=== PATIENT | female | born 1985 | race Caucasian/White ===

== ENCOUNTER 2023-10-14 02:16 | Emergency (ER) | payer BC ==
--- OUTSIDE RECORDS SUMMARY | 2023-10-14 02:22 | XMS REPORT | Continuity of Care Document ---
:1985 Author Organization [facility] t Address [address] [place] [address] [place] [id number] Care Team Providers Name Role Phone PCP, PATIENT DOES NOT HAVE A Primary Care Physician Unavaila ble BERTHA HERNÁNDEZ Attending Clinician Unavailable Leo Obrien ENP Attending Clinician Bertha Hernández DO Attending Clinician HUMANGERALD Attending Clinician Unavailable Human Gerald FAITH Attending Clinician Doctor Unassigned, Delight Attending Clinician Unavailable KHOI BOCANEGRA Attending Clinician Unavailable NIKHIL FINN Attending Clinician Unavailable Only, Pcp [address] Test Attending Clinician Unavailable Malorie Russ MD Attending Clinician MALORIE RUSS Attending Clinician Unavailable Marija Fischer RN Attending Clinician Unavailable Jax Leon RN Attending Clinician Unavailable Lavon Pearce RN Attending Clinician Unavailable Only, Gal Adult Uc Test Attending Clinician Unavailable Unknown, Attending Attending Clinician Unavailable UNKNOWN, ATTENDING Attending Clinician Unavailable Kayleen Edmondson RN Attending Clinician Unavailable Nurse, Gal Adult Urgent Attending Clinician Unavailable NIKHIL YANEZ Attending Clinician Unavailable MD NIKHIL YANEZ Attending Clinician Unavailable Yasmine Sanon MD Attending Clinician PEAKAPRYL, DONOVAN Attending Clinician Unavailable YASMINE SANON Attending Clinician Unavailable Pauline RN, Glendy Machado Attending Clinician Unavailable Only, Clc Bls Test Attending Clinician Unavailable HAYDEN WOLF Attending Clinician Unavailable LE, BERTHA Admitting Clinician Unavailable Le DO, Bertha Admitting Clinician NIKHIL YANEZ Admitting Clinician Unavailable MD NIKHIL YANEZ Admitting Clinician Unavailable Payers Payer Name Policy Type Policy Number Effective Date Expiration Date S ource BCBS FED SELECT [id number] 2013 00:00:00 Problems Condition Condition Condition Status Onset Resolution Last Treating Co mments Source Name Details Category Date Date Treatment Clinician Date Cholecysti Cholecysti Disease Active U nivers tis tis 8-23 ity of 00:00: [place] 00 [facility] Branch Enlarged Enlarged Disease Active 2019-11 Metho di tonsils tonsils 2-15 st and and 00:00: Hospita adenoids adenoids 00 l Snoring Snoring Disease Active 2019-11 Methodi 2[facility] 00:00: Hospita 00 l Scoliosis Scoliosis Disease Active 2019-0 Met hodi 6-15 st 00:00: Hospita 00 l BMI BMI Disease Active 2019-0 Methodi 28.0-28.9, 28.0-28.9, 6-15 st adult adult 00:00: Hospita 00 l Family Family Disease Active 2019-0 Methodi history of history of 5-26 st scoliosis scoliosis 00:00: Hosp sophia 00 l Multiple Multiple Disease Active Overview: Un sav[place] marker marker 03-15 Formattin ity of screen screen 00:00: g of this [place] positive positive 00 note Medica l for Down for Down might be Bran ch syndrome syndrome different from the original. Formattin g of this note might be different from the original. 03/15/2018 : Referral to genetics ordered History of History of Disease Active Overview : Univers gestationa gestationa 02-21 Formattin ity of l diabetes l diabetes 00:00: g of this [place] 00 note Medical might be Branch different from the original. Formattin g of this note might be different from the original. Early GTT at 18w3/30/2 018: Glucomete r prescribe d per patient request Disease Active Overview: Univers in in 01-21 Formattin ity of multigravi multigravi 00:00: g of this [place] da da 00 note Medical might be Branch different from the original. Formattin g of this note might be different from the original. Estimated Date of Delivery: 09/12/18 by 10w c/w 13w ultrasoun [id number] Patient's LMP from OB Dating Form was 12/14/[address] Lama at for any admission /delivery [X]OB panel 01/21/2018: H/H 11.9/35.2 , PLT 256, A+/-, RPR NR, HBsAg NR, Rubella Immune, HIV NR, GCC Negative, Urine Culture No Growth[-] Flu vaccine 01/21/2018: Declined[ X]OB education visit 02/18/2018 []FTS 03/08/2018 NT 1.4 mm[]MSAFP []Anatomy U/S []1hr gtt and H/H at 26-28wks []DTAP vaccine, RPR, HIV at 32wks []Consent []Breastf eeding[]G BS at 36wks Maternal Maternal Disease Active 2016-11 Overview: Un [place] care due care due 12-11 Formattin ity of to low to low 00:00: g of this [place] transverse transverse 00 note Me dical uterine uterine might be Branch scar from scar from different previous previous from the original. delivery delivery Formattin g of this note might be different from the original. Letter dated 07/12/[address] Yaima Parham MD stating that C/S performed on 05/13/2014 and 05/29/2016 were both LUTCS. 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 Formattin g of this note might be different from the original. 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 ICD10 Diagnosis Term Nutrition Services Assistant Utility Allergic Allergic Disease Active Unive rs rhinitis rhinitis 4-20 ity of due to due to 00:00: [place] other other 00 Medical allergen allergen Branch Allergies, Adverse Reactions, Alerts Allergy Allergy Status Severity Reaction(s) Onset Inactive Treating Comm ents Source Name Type Date Date Clinician ADHESIVE Drug Active Rash 2021-11 Univers Class 2-13 ity of 00:00: [place] 00 [facility] Branch Adhesive Drug Active Rash 2021-11 Univers Allergy 2-13 ity of 00:00: [place] 00 [facility] Branch ADHESIVE DRUG Active Other-Cmnt Univ ers TAPE-ROHIT 1-20 ity of ICONES 00:00: [place] 00 [facility] Branch Adhesive Propensi Active Other - See Blisteri n Univers Tape-Rohit ty to comments 1-20 g with ity of icones adverse 00:00: steri [place] reaction 00 strips Medical s Branch Adhesive Propensi Active Other (See Blisterin Methodi Tape-Rohit ty to Comments) 1-[address] icones adverse 00:00: steri Hospita reaction 00 strips l s to drug NO KNOWN Drug Active Univers ALLERGIE Class ity of S [facility] Family History Family Member Diagnosis Comments Start Date Stop Date Source Natural mother Anxiety disorder [facility] Natural mother Dementia [facility] Natural mother Depression [facility] Natural mother ADD / ADHD [facility] Paternal grandmother Alzheimer's Met [facility] Cousin Scoliosis [facility] Natural father Cancer [facility] Maternal grandfather Prostate cancer [facility] Maternal grandmother Dementia [facility] Maternal grandmother Scoliosis [facility] Social History Social Habit Start Date Stop Date Quantity Comments Source Exposure to Not sure University of SARS-CoV-2 (event) [facility] Gender identity Universit y of [facility] Sexual orientation [facility] Alcohol intake 2020-12-24 2020-12-24 Current drinker [facility] dist 00:00:00 00:00:00 of alcohol Hospital (finding) History of Social 2020-12-24 2020-12-[address] function 00:00:00 00:00:00 Hospital Alcohol Comment 2020-04-16 2020-04-16 weekends Bahai 00:00:00 00:00:00 [facility] Tobacco use and 2012-12-01 2012-12-01 Smokeless Universit y of exposure 00:00:00 00:00:00 tobacco non-user [facility] Sex Assigned At [birth year] Bahai 00:00:00 00:00:00 [facility] Smoking Status Start Date Stop Date Source Never smoked tobacco [facility] Medications Ordered Filled Start Stop Current Ordering Indication Dosage Frequency Signature Comments Components Source Medication Medication Date Date Medication? Clinician (SIG) Name Name KCL 2022- No 20meq 20 mEq, Univers (KLOR-CON 07-15 Oral, ity of M20) tablet 00:15: 01:37 [place] 1 [place] mEq 00 :00 dose, On Medical Wed Branch 07/14/23 at 1915, VEGA iopamidol 2022- No [id number] 100mL 100 mL, Univers (ISOVUE 07-14 Intravenou ity o f 370-500 mL) 23:30: 23:30 s, ONCE, 1 [place] injection 00 :00 dose, On Medica l 100 mL Wed Branch 07/14/23 at 1830, Routine ketorolac 2022- No 15mg 15 mg, Unive rs (TORADOL) 07-14 Slow IV ity of injection 22:15: 21:29 Push, [place] 15 mg 00 :00 ONCE, 1 Medical dose, On Branch [facility] 07/14/23 at 1715, VEGA NaCl 0.9% 2022- No 1000mL at 999 Uni vers (NS) bolus 07-14 mL/hr, ity of infusion 22:00: 01:00 1,000 mL, Elijah as 1,000 mL 00 :00 IV Medical Infusion, Branch ONCE, 1 dose, On Wed07/14/23 at 1700, VEGA ondansetron 0 2022- No 4mg 4 mg, Slow Univers (ZOFRAN 07-14 IV Push, ity of (PF)) 22:00: 21:29 ONCE, 1 [place] injection 4 00 :00 dose, On Medi syed mg Wed Branch 07/14/23 at 1700, VEGA amoxicillin 2022-0 202- No [id number] 1{tbl} Take 1 Univers -clavulanat 07-14 tablet by it y of e 875-125 00:00: 04:59 mouth [place] mg per 00 :00 every 12 Medical tablet (twelve) Branch hours for 10 days. Yes Take by Method i no122/iron/ 2-[address] folic acid 11:05: Hospita ( 18 l MULTI ORAL) Lactobacill Yes Take [facility] acidophilus 11:05: Hospit a (PROBIOTIC 18 l ORAL) cholecalcif Yes Take by Met bernarda patt, 2-[address] vitamin D3, 11:05: Hospit a (VITAMIN D3 18 l ORAL) ascorbic Yes Take by Method i acid 2-[address] (VITAMIN C 11:05: Hospita ORAL) 18 l MAGNESIUM Yes Take by Metho di ORAL 2-[address] 11:05: Hospita 18 l PNV 2020-0 Yes [facility] mouth. ity of ous 18:01: [place] fumarate-FA 42 Medical () Branch 28 mg iron- 800 mcg Tab PNV 2020-0 Yes Take [facility] 6-04 mouth. ity of ous 18:01: [place] fumarate-FA 42 Medical () Branch 28 mg iron- 800 mcg Tab PNV 2020-0 Yes Take [facility] 6-04 mouth. ity of ous 18:01: [place] fumarate-FA 42 Medical () Branch 28 mg iron- 800 mcg Tab PNV 2020-0 Yes Take [facility] 6-04 mouth. ity of ous 18:01: [place] fumarate-FA 42 Medical () Branch 28 mg iron- 800 mcg Tab PNV 2020-0 Yes Take [facility] 6-04 mouth. ity of ous 18:01: [place] fumarate-FA 42 Medical () Branch 28 mg iron- 800 mcg Tab PNV 2020-0 Yes Take [facility] 6-04 mouth. ity of ous 18:01: [place] fumarate-FA 42 Medical () Branch 28 mg iron- 800 mcg Tab PNV 2020-0 Yes Take [facility] 6-04 mouth. ity of ous 18:01: [place] fumarate-FA 42 Medical () Branch 28 mg iron- 800 mcg Tab PNV 2020-0 Yes Take by [facility] cmb#95-ferr 6-04 mouth. ity of ous 18:01: [place] fumarate-FA 42 Medical () Branch 28 mg iron- 800 mcg Tab PNV 2020-0 Yes Take [facility] 6-04 mouth. ity of ous 18:01: [place] fumarate-FA 42 Medical () Branch 28 mg iron- 800 mcg Tab PNV 2020-0 Yes Take [facility] 6-04 mouth. ity of ous 18:01: [place] fumarate-FA 42 Medical () Branch 28 mg iron- 800 mcg Tab PNV 2020-0 Yes Take [facility] 6-04 mouth. ity of ous 18:01: [place] fumarate-FA 42 Medical () Branch 28 mg iron- 800 mcg Tab PNV 2020-0 Yes Take [facility] 6-04 mouth. ity of ous 18:01: [place] fumarate-FA 42 Medical () Branch 28 mg iron- 800 mcg Tab PNV 2020-0 Yes Take [facility] 6-04 mouth. ity of ous 18:01: [place] fumarate-FA 42 Medical () Branch 28 mg iron- 800 mcg Tab PNV 2020-0 Yes Take [facility] 6-04 mouth. ity of ous 18:01: [place] fumarate-FA 42 Medical () Branch 28 mg iron- 800 mcg Tab PNV 2020-0 Yes Take [facility] 6-04 mouth. ity of ous 18:01: [place] fumarate-FA 42 Medical () Branch 28 mg iron- 800 mcg Tab PNV 2020-0 Yes Take by Univers cmb#95-ferr 6-04 mouth. ity of ous 18:01: [place] fumarate-FA 42 Medical () Branch 28 mg iron- 800 mcg Tab PNV 2020-0 Yes Take by [facility] cmb#95-ferr 6-04 mouth. ity of ous 18:01: [place] fumarate-FA 42 Medical () Branch 28 mg iron- 800 mcg Tab PNV 2020-0 Yes Take by [facility] cmb#95-ferr 6-04 mouth. ity of ous 18:01: [place] fumarate-FA 42 Medical () Branch 28 mg iron- 800 mcg Tab PNV 2020-0 Yes Take by [facility] cmb#95-ferr 6-04 mouth. ity of ous 18:01: [place] fumarate-FA 42 Medical () Branch 28 mg iron- 800 mcg Tab PNV 2020-0 Yes Take by [facility] cmb#95-ferr 6-04 mouth. ity of ous 18:01: [place] fumarate-FA 42 Medical () Branch 28 mg iron- 800 mcg Tab PNV 2020-0 Yes Take by [facility] cmb#95-ferr 6-04 mouth. ity of ous 18:01: [place] fumarate-FA 42 Medical () Branch 28 mg iron- 800 mcg Tab PNV 2020-0 Yes Take by [facility] cmb#95-ferr 6-04 mouth. ity of ous 13:01: [place] fumarate-FA 42 Medical () Branch 28 mg iron- 800 mcg Tab PNV 2020-0 Yes Take by [facility] cmb#95-ferr 6-04 mouth. ity of ous 13:01: [place] fumarate-FA 42 Medical () Branch 28 mg iron- 800 mcg Tab PNV 2020-0 Yes Take by [facility] cmb#95-ferr 6-04 mouth. ity of ous 13:01: [place] fumarate-FA 42 Medical () Branch 28 mg iron- 800 mcg Tab PNV 2020-0 Yes Take by [facility] cmb#95-ferr 6-04 mouth. ity of ous 13:01: [place] fumarate-FA 42 Medical () Branch 28 mg iron- 800 mcg Tab PNV 2020-0 Yes Take by [facility] cmb#95-ferr 6-04 mouth. ity of ous 13:01: [place] fumarate-FA 42 Medical () Branch 28 mg iron- 800 mcg Tab PNV 2020-0 Yes Take [facility] 6-04 mouth. ity of ous 13:01: [place] fumarate-FA 42 Medical () Branch 28 mg iron- 800 mcg Tab PNV 2017- Yes Take [facility] 1-14 mouth. ity of ous 05:08: [place] fumarate-FA 00 Medical () Branch 28 mg iron- 800 mcg Tab PNV 2017 Yes Take [facility] 1-14 mouth. ity of ous 05:08: [place] fumarate-FA 00 Medical () Branch 28 mg iron- 800 mcg Tab Immunizations Ordered Filled Date Status Comments Source Immunization Name Immunization Name SARS-COV-2 COVID-19 2021-04-09 Completed Unive rsity of PFIZER VACCINE 00:00:00 [facility] SARS-COV-2 COVID-19 2021-04-09 Completed Unive rsity of PFIZER VACCINE 00:00:00 [facility] SARS-COV-2 COVID-19 2021-04-09 Completed Unive rsity of PFIZER VACCINE 00:00:00 [facility] SARS-COV-2 COVID-19 2021-04-09 Completed Unive rsity of PFIZER VACCINE 00:00:00 [facility] Pfizer COVID-19 Pfizer COVID-19 2021-04-09 Completed Vaccine Vaccine 00:00:00 SARS-COV-2 COVID-19 2021-03-19 Completed Unive rsity of PFIZER VACCINE 00:00:00 [facility] SARS-COV-2 COVID-19 2021-03-19 Completed Unive rsity of PFIZER VACCINE 00:00:00 [facility] SARS-COV-2 COVID-19 2021-03-19 Completed Unive rsity of PFIZER VACCINE 00:00:00 [facility] SARS-COV-2 COVID-19 2021-03-19 Completed Unive rsity of PFIZER VACCINE 00:00:00 [facility] Pfizer COVID-19 Pfizer COVID-19 2021-03-19 Completed Vaccine Vaccine 00:00:00 Allergen Extract 2012-04-11 Completed Universi ty of vial b 00:00:00 [facility] Allergen Extract 2012-04-11 Completed Universi ty of vial b 00:00:00 [place] [facility] Allergen Extract 2012-04-11 Completed Universi ty of vial b 00:00:00 [place] [facility] Allergen Extract 2012-04-11 Completed Universi ty of vial b 00:00:00 [place] [facility] Allergen Extract 2012-04-11 Completed Universi ty of vial b 00:00:00 [place] [facility] Allergen Extract 2012-04-06 Completed Universi ty of vial b 00:00:00 [place] [facility] Allergen Extract 2012-04-06 Completed Universi ty of vial b 00:00:00 [place] [facility] Allergen Extract 2012-04-06 Completed Universi ty of vial b 00:00:00 [place] [facility] Allergen Extract 2012-04-06 Completed Universi ty of vial b 00:00:00 [place] [facility] Allergen Extract 2012-04-06 Completed Universi ty of vial b 00:00:00 [place] [facility] allergen extract 2012-03-28 Completed Universi ty of vial a 00:00:00 [place] [facility] Allergen Extract 2012-03-28 Completed Universi ty of vial b 00:00:00 [place] [facility] allergen extract 2012-03-28 Completed Universi ty of vial a 00:00:00 [place] [facility] Allergen Extract 2012-03-28 Completed Universi ty of vial b 00:00:00 [place] [facility] allergen extract 2012-03-28 Completed Universi ty of vial a 00:00:00 [place] [facility] Allergen Extract 2012-03-28 Completed Universi ty of vial b 00:00:00 [place] [facility] allergen extract 2012-03-28 Completed Universi ty of vial a 00:00:00 [place] [facility] Allergen Extract 2012-03-28 Completed Universi ty of vial b 00:00:00 [place] [facility] allergen extract 2012-03-28 Completed Universi ty of vial a 00:00:00 [place] [facility] Allergen Extract 2012-03-28 Completed Universi ty of vial b 00:00:00 [place] [facility] allergen extract 2012-03-23 Completed Universi ty of vial a 00:00:00 [place] [facility] Allergen Extract 2012-03-23 Completed Universi ty of vial b 00:00:00 [place] [facility] allergen extract 2012-03-23 Completed Universi ty of vial a 00:00:00 [place] [facility] Allergen Extract 2012-03-23 Completed Universi ty of vial b 00:00:00 [place] [facility] allergen extract 2012-03-23 Completed Universi ty of vial a 00:00:00 [place] [facility] Allergen Extract 2012-03-23 Completed Universi ty of vial b 00:00:00 [place] [facility] allergen extract 2012-03-23 Completed Universi ty of vial a 00:00:00 [place] [facility] Allergen Extract 2012-03-23 Completed Universi ty of vial b 00:00:00 [place] [facility] allergen extract 2012-03-23 Completed Universi ty of vial a 00:00:00 [place] [facility] Allergen Extract 2012-03-23 Completed Universi ty of vial b 00:00:00 [place] [facility] Allergen Extract 2012-03-21 Completed Universi ty of vial b 00:00:00 [place] [facility] Allergen Extract 2012-03-21 Completed Universi ty of vial b 00:00:00 [place] [facility] Allergen Extract 2012-03-21 Completed Universi ty of vial b 00:00:00 [place] [facility] Allergen Extract 2012-03-21 Completed Universi ty of vial b 00:00:00 [place] [facility] Allergen Extract 2012-03-21 Completed Universi ty of vial b 00:00:00 [place] [facility] allergen extract 2012-03-18 Completed Universi ty of vial a 00:00:00 [place] [facility] Allergen Extract 2012-03-18 Completed Universi ty of vial b 00:00:00 [place] [facility] allergen extract 2012-03-18 Completed Universi ty of vial a 00:00:00 [place] [facility] Allergen Extract 2012-03-18 Completed Universi ty of vial b 00:00:00 [place] [facility] allergen extract 2012-03-18 Completed Universi ty of vial a 00:00:00 [place] [facility] Allergen Extract 2012-03-18 Completed Universi ty of vial b 00:00:00 [place] [facility] allergen extract 2012-03-18 Completed Universi ty of vial a 00:00:00 [place] [facility] Allergen Extract 2012-03-18 Completed Universi ty of vial b 00:00:00 [place] [facility] allergen extract 2012-03-18 Completed Universi ty of vial a 00:00:00 [place] [facility] Allergen Extract 2012-03-18 Completed Universi ty of vial b 00:00:00 [place] [facility] allergen extract 2012-02-12 Completed Universi ty of vial a 00:00:00 [place] [facility] Allergen Extract 2012-02-12 Completed Universi ty of vial b 00:00:00 [place] [facility] allergen extract 2012-02-12 Completed Universi ty of vial a 00:00:00 [place] [facility] Allergen Extract 2012-02-12 Completed Universi ty of vial b 00:00:00 [place] [facility] allergen extract 2012-02-12 Completed Universi ty of vial a 00:00:00 [place] [facility] Allergen Extract 2012-02-12 Completed Universi ty of vial b 00:00:00 [place] [facility] allergen extract 2012-02-12 Completed Universi ty of vial a 00:00:00 [place] [facility] Allergen Extract 2012-02-12 Completed Universi ty of vial b 00:00:00 [place] [facility] allergen extract 2012-02-12 Completed Universi ty of vial a 00:00:00 [place] [facility] Allergen Extract 2012-02-12 Completed Universi ty of vial b 00:00:00 [place] [facility] allergen extract 2011-12-29 Completed Universi ty of vial a 00:00:00 [place] [facility] Allergen Extract 2011-12-29 Completed Universi ty of vial b 00:00:00 [place] [facility] allergen extract 2011-12-29 Completed Universi ty of vial a 00:00:00 [place] [facility] Allergen Extract 2011-12-29 Completed Universi ty of vial b 00:00:00 [place] [facility] allergen extract 2011-12-29 Completed Universi ty of vial a 00:00:00 [place] [facility] Allergen Extract 2011-12-29 Completed Universi ty of vial b 00:00:00 [place] [facility] allergen extract 2011-12-29 Completed Universi ty of vial a 00:00:00 [place] [facility] Allergen Extract 2011-12-29 Completed Universi ty of vial b 00:00:00 [place] [facility] allergen extract 2011-12-29 Completed Universi ty of vial a 00:00:00 [place] [facility] Allergen Extract 2011-12-29 Completed Universi ty of vial b 00:00:00 [place] [facility] allergen extract 2011-12-16 Completed Universi ty of vial a 00:00:00 [place] [facility] Allergen Extract 2011-12-16 Completed Universi ty of vial b 00:00:00 [place] [facility] allergen extract 2011-12-16 Completed Universi ty of vial a 00:00:00 [place] [facility] Allergen Extract 2011-12-16 Completed Universi ty of vial b 00:00:00 [place] [facility] allergen extract 2011-12-16 Completed Universi ty of vial a 00:00:00 [place] [facility] Allergen Extract 2011-12-16 Completed Universi ty of vial b 00:00:00 [place] [facility] allergen extract 2011-12-16 Completed Universi ty of vial a 00:00:00 [place] [facility] Allergen Extract 2011-12-16 Completed Universi ty of vial b 00:00:00 [place] [facility] allergen extract 2011-12-16 Completed Universi ty of vial a 00:00:00 [place] [facility] Allergen Extract 2011-12-16 Completed Universi ty of vial b 00:00:00 [place] [facility] allergen extract 2011-11-30 Completed Universi ty of vial a 00:00:00 [place] [facility] Allergen Extract 2011-11-30 Completed Universi ty of vial b 00:00:00 [place] [facility] allergen extract 2011-11-30 Completed Universi ty of vial a 00:00:00 [place] [facility] Allergen Extract 2011-11-30 Completed Universi ty of vial b 00:00:00 [place] [facility] allergen extract 2011-11-30 Completed Universi ty of vial a 00:00:00 [place] [facility] Allergen Extract 2011-11-30 Completed Universi ty of vial b 00:00:00 [place] [facility] allergen extract 2011-11-30 Completed Universi ty of vial a 00:00:00 [place] [facility] Allergen Extract 2011-11-30 Completed Universi ty of vial b 00:00:00 [place] [facility] allergen extract 2011-11-30 Completed Universi ty of vial a 00:00:00 [place] [facility] Allergen Extract 2011-11-30 Completed Universi ty of vial b 00:00:00 [place] [facility] allergen extract 2011-11-27 Completed Universi ty of vial a 00:00:00 [place] [facility] Allergen Extract 2011-11-27 Completed Universi ty of vial b 00:00:00 [place] [facility] allergen extract 2011-11-27 Completed Universi ty of vial a 00:00:00 [place] [facility] Allergen Extract 2011-11-27 [facility] allergen extract 2011-11-27 Completed [facility]00 [facility] Allergen Extract 2011-11-27 Completed [facility]00 [facility] allergen extract 2011-11-27 Completed [facility]00 [facility] Allergen Extract 2011-11-27 Completed [facility]00 [facility] allergen extract 2011-11-27 Completed [facility]00 [facility] Allergen Extract 2011-11-27 Completed [facility]00 [facility] allergen extract 2011-11-13 Completed [facility]00 [facility] Allergen Extract 2011-11-13 Completed [facility]00 [facility] allergen extract 2011-11-13 Completed [facility]00 [facility] Allergen Extract 2011-11-13 Completed [facility]00 [facility] allergen extract 2011-11-13 Completed [facility]00 [facility] Allergen Extract 2011-11-13 Completed [facility]00 [facility] allergen extract 2011-11-13 Completed [facility] 00:[facility]00 [facility] Allergen Extract 2011-11-13 Completed [facility]00 [facility] allergen extract 2011-11-13 Completed [facility] 00:[facility]00 [facility] Allergen Extract 2011-11-13 Completed [facility]00 [facility] allergen extract 2011-11-06 Completed [facility]00 [facility] Allergen Extract 2011-11-06 Completed [facility]00 [facility] allergen extract 2011-11-06 Completed [facility]00 [facility] Allergen Extract 2011-11-06 Completed [facility]00 [facility] allergen extract 2011-11-06 Completed [facility]00 [facility] Allergen Extract 2011-11-06 Completed [facility]00 [facility] allergen extract 2011-11-06 Completed [facility]00 [facility] Allergen Extract 2011-11-06 Completed [facility]00 [facility] allergen extract 2011-11-06 Completed [facility]00 [facility] Allergen Extract 2011-11-06 Completed [facility]00 [facility] allergen extract 2011-10-30 Completed [facility]00 [facility] Allergen Extract 2011-10-30 Completed [facility]00 [facility] allergen extract 2011-10-30 Completed [facility] 00:[facility]00 [facility] Allergen Extract 2011-10-30 Completed [facility]00 [facility] allergen extract 2011-10-30 Completed [facility] 00:00:00 [facility] Allergen Extract 2011-10-30 Completed [facility]:00[facility]00 [facility] allergen extract 2011-10-30 Completed [facility]00 [facility] Allergen Extract 2011-10-30 Completed [facility]00 [facility] allergen extract 2011-10-30 Completed [facility] 00:00[facility]00 [facility] Allergen Extract 2011-10-30 Completed [facility]00 [facility] allergen extract 2011-10-21 Completed [facility] 00:[facility]00 [facility] Allergen Extract 2011-10-21 Completed [facility]00 [facility] allergen extract 2011-10-21 Completed [facility] 00:[facility]00 [facility] Allergen Extract 2011-10-21 Completed [facility]00 [facility] allergen extract 2011-10-21 Completed [facility] 00:[facility]:00 [facility] Allergen Extract 2011-10-21 Completed [facility]00 [facility] allergen extract 2011-10-21 Completed [facility] 00:00:00 [facility] Allergen Extract 2011-10-21 Completed [facility] 00:[facility]00 [facility] allergen extract 2011-10-21 Completed [facility] 00:00:00 [facility] Allergen Extract 2011-10-21 Completed [facility]00 [facility] allergen extract 2011-10-19 Completed [facility] 00:[facility]00 [facility] Allergen Extract 2011-10-19 Completed [facility]00 [facility] allergen extract 2011-10-19 Completed [facility] 00:00[facility]00 [facility] Allergen Extract 2011-10-19 Completed [facility]00 [facility] allergen extract 2011-10-19 Completed [facility] 00:[facility]:00 [facility] Allergen Extract 2011-10-19 Completed [facility]00 [facility] allergen extract 2011-10-19 Completed [facility] 00:00:00 [facility] Allergen Extract 2011-10-19 Completed [facility]00 [facility] allergen extract 2011-10-19 Completed [facility] 00:00:00 [facility] Allergen Extract 2011-10-19 Completed [facility] 00:[facility]:00 [facility] allergen extract 2011-10-05 Completed [facility] 00:00:00 [facility] Allergen Extract 2011-10-05 Completed [facility] 00:[facility]:00 [facility] allergen extract 2011-10-05 Completed [facility] 00:00:00 [facility] Allergen Extract 2011-10-05 Completed [facility] 00:00:00 [facility] allergen extract 2011-10-05 Completed [facility] 00:00:00 [facility] Allergen Extract 2011-10-05 Completed [facility] 00:[facility]:00 [facility] allergen extract 2011-10-05 Completed [facility] 00:00:00 [facility] Allergen Extract 2011-10-05 Completed [facility] 00:[facility]00 [facility] allergen extract 2011-10-05 Completed [facility] 00:00:00 [facility] Allergen Extract 2011-10-05 Completed [facility] 00:[facility]00 [facility] allergen extract 2011-09-21 Completed [facility] 00:00[facility]00 [facility] Allergen Extract 2011-09-21 Completed [facility]00 [facility] allergen extract 2011-09-21 Completed [facility] 00:00:00 [facility] Allergen Extract 2011-09-21 Completed [facility]00 [facility] allergen extract 2011-09-21 Completed [facility] 00:00:00 [facility] Allergen Extract 2011-09-21 Completed [facility]00 [facility] allergen extract 2011-09-21 Completed [facility] 00:00:00 [facility] Allergen Extract 2011-09-21 Completed [facility]00 [facility] allergen extract 2011-09-21 Completed [facility] 00:00:00 [facility] Allergen Extract 2011-09-21 Completed [facility]00 [facility] allergen extract 2011-09-16 Completed [facility] 00:00:00 [facility] Allergen Extract 2011-09-16 Completed [facility]00 [facility] allergen extract 2011-09-16 Completed [facility] 00:00:00 [facility] Allergen Extract 2011-09-16 Completed [facility] 00:[facility]:00 [facility] allergen extract 2011-09-16 Completed [facility] 00:00:00 [facility] Allergen Extract 2011-09-16 Completed [facility]00 [facility] allergen extract 2011-09-16 Completed [facility] 00:00:00 [facility] Allergen Extract 2011-09-16 Completed [facility] 00:[facility]00 [facility] allergen extract 2011-09-16 Completed [facility] 00:00:00 [facility] Allergen Extract 2011-09-16 Completed [facility]00 [facility] allergen extract 2011-08-26 Completed [facility] 00:00:00 [facility] Allergen Extract 2011-08-26 Completed [facility]00 [facility] allergen extract 2011-08-26 Completed [facility] 00:00:00 [facility] Allergen Extract 2011-08-26 Completed [facility] 00:[facility]:00 [facility] allergen extract 2011-08-26 Completed [facility] 00:[facility]:00 [facility] Allergen Extract 2011-08-26 Completed [facility]00 [facility] allergen extract 2011-08-26 Completed [facility] 00:00:00 [facility] Allergen Extract 2011-08-26 Completed [facility] 00:[facility]00 [facility] allergen extract 2011-08-26 Completed [facility] 00:00:00 [facility] Allergen Extract 2011-08-26 Completed [facility]00 [facility] allergen extract 2011-08-24 Completed [facility] 00:00:00 [facility] Allergen Extract 2011-08-24 Completed [facility]00 [facility] allergen extract 2011-08-24 Completed [facility] 00:00:00 [facility] Allergen Extract 2011-08-24 Completed [facility] 00:[facility]:00 [facility] allergen extract 2011-08-24 Completed [facility] 00:[facility]:00 [facility] Allergen Extract 2011-08-24 Completed [facility] 00:[facility]00 [facility] allergen extract 2011-08-24 Completed [facility] 00:00:00 [facility] Allergen Extract 2011-08-24 Completed [facility]00 [facility] allergen extract 2011-08-24 Completed [facility] 00:00:00 [facility] Allergen Extract 2011-08-24 Completed [facility] 00:[facility]00 [facility] allergen extract 2011-08-19 Completed [facility] 00:00:00 [facility] Allergen Extract 2011-08-19 Completed [facility] 00:[facility]00 [facility] allergen extract 2011-08-19 Completed [facility] 00:00:00 [facility] Allergen Extract 2011-08-19 Completed [facility] 00:[facility]00 [facility] allergen extract 2011-08-19 Completed [facility] 00:00:00 [facility] Allergen Extract 2011-08-19 Completed [facility]00 [facility] allergen extract 2011-08-19 Completed [facility] 00:00:00 [facility] Allergen Extract 2011-08-19 Completed [facility] 00:[facility]:00 [facility] allergen extract 2011-08-19 Completed [facility] 00:00:00 [facility] Allergen Extract 2011-08-19 Completed [facility] 00:[facility]:00 [facility] Allergen Extract 2011-08-17 Completed [facility] 00:[facility]:00 [facility] allergen extract 2011-08-17 Completed [facility] 00:00:00 [facility] Allergen Extract 2011-08-17 Completed [facility] 00:[facility]:00 [facility] allergen extract 2011-08-17 Completed [facility] 00:00:00 [facility] Allergen Extract 2011-08-17 Completed [facility] 00:[facility]:00 [facility] allergen extract 2011-08-17 Completed [facility] 00:00:00 [facility] Allergen Extract 2011-08-17 Completed [facility]:00 [facility] allergen extract 2011-08-17 Completed [facility] 00:00:00 [facility] Allergen Extract 2011-08-17 Completed [facility]00 [facility] allergen extract 2011-08-17 Completed [facility] 00:00:00 [facility] allergen extract 2011-08-10 Completed [facility] 00:00:00 [facility] Allergen Extract 2011-08-10 Completed [facility] 00:[facility]:00 [facility] allergen extract 2011-08-10 Completed [facility] 00:00:00 [facility] Allergen Extract 2011-08-10 Completed [facility] 00:00:00 [facility] allergen extract 2011-08-10 Completed [facility] 00:00:00 [facility] Allergen Extract 2011-08-10 Completed [facility] 00:00:00 [facility] allergen extract 2011-08-10 Completed [facility] 00:00:00 [facility] Allergen Extract 2011-08-10 Completed [facility] 00:00:00 [facility] allergen extract 2011-08-10 Completed [facility] 00:00:00 [facility] Allergen Extract 2011-08-10 Completed [facility] 00:00:00 [facility] allergen extract 2011-08-05 Completed [facility] 00:00:00 [facility] Allergen Extract 2011-08-05 Completed [facility] 00:[facility]:00 [facility] allergen extract 2011-08-05 Completed [facility] 00:00:00 [facility] Allergen Extract 2011-08-05 Completed [facility] 00:[facility]:00 [facility] allergen extract 2011-08-05 Completed [facility] 00:00:00 [facility] Allergen Extract 2011-08-05 Completed [facility] 00:00:00 [facility] allergen extract 2011-08-05 Completed [facility] 00:00:00 [facility] Allergen Extract 2011-08-05 Completed [facility] 00:00:00 [facility] allergen extract 2011-08-05 Completed [facility] 00:00:00 [facility] Allergen Extract 2011-08-05 Completed [facility] 00:00:00 [facility] allergen extract 2011-08-03 Completed [facility] 00:00:00 [facility] Allergen Extract 2011-08-03 Completed [facility] 00:00:00 [facility] allergen extract 2011-08-03 Completed [facility] 00:00:00 [facility] Allergen Extract 2011-08-03 Completed [facility] 00:00:00 [facility] allergen extract 2011-08-03 Completed [facility] 00:00:00 [facility] Allergen Extract 2011-08-03 Completed [facility] 00:00:00 [facility] allergen extract 2011-08-03 Completed [facility] 00:00:00 [facility] Allergen Extract 2011-08-03 Completed [facility] 00:00:00 [facility] allergen extract 2011-08-03 Completed [facility] 00:00:00 [facility] Allergen Extract 2011-08-03 Completed [facility]:00:00 [facility] allergen extract 2011-07-29 Completed [facility] 00:00:00 [facility] Allergen Extract 2011-07-29 Completed [facility]:00:00 [facility] allergen extract 2011-07-29 Completed [facility] 00:00:00 [facility] Allergen Extract 2011-07-29 Completed [facility] 00:00:00 [facility] allergen extract 2011-07-29 Completed [facility] 00:00:00 [facility] Allergen Extract 2011-07-29 Completed [facility] 00:00:00 [facility] allergen extract 2011-07-29 Completed [facility] 00:00:00 [facility] Allergen Extract 2011-07-29 Completed [facility] 00:00:00 [facility] allergen extract 2011-07-29 Completed [facility] 00:00:00 [facility] Allergen Extract 2011-07-29 Completed [facility]:00:00 [facility] allergen extract 2011-07-10 Completed [facility] 00:00:00 [facility] Allergen Extract 2011-07-10 Completed [facility] 00:00:00 [facility] allergen extract 2011-07-10 Completed [facility] 00:00:00 [facility] Allergen Extract 2011-07-10 Completed [facility] 00:00:00 [facility] allergen extract 2011-07-10 Completed [facility] 00:00:00 [facility] Allergen Extract 2011-07-10 Completed [facility] 00:00:00 [facility] allergen extract 2011-07-10 Completed [facility] 00:00:00 [facility] Allergen Extract 2011-07-10 Completed [facility] 00:00:00 [facility] allergen extract 2011-07-10 Completed [facility] 00:00:00 [facility] Allergen Extract 2011-07-10 Completed [facility] 00:00:00 [facility] allergen extract 2011-07-07 Completed [facility] 00:00:00 [facility] Allergen Extract 2011-07-07 Completed [facility] 00:00:00 [facility] allergen extract 2011-07-07 Completed [facility] 00:00:00 [facility] Allergen Extract 2011-07-07 Completed [facility] 00:00:00 [facility] allergen extract 2011-07-07 Completed [facility] 00:00:00 [facility] Allergen Extract 2011-07-07 Completed [facility] 00:00:00 [facility] allergen extract 2011-07-07 Completed [facility] 00:00:00 [facility] Allergen Extract 2011-07-07 Completed [facility] 00:00:00 [facility] allergen extract 2011-07-07 Completed [facility] 00:00:00 [facility] Allergen Extract 2011-07-07 Completed [facility]:00:00 [facility] allergen extract 2011-06-24 Completed [facility] 00:00:00 [facility] Allergen Extract 2011-06-24 Completed [facility]:00 [facility] allergen extract 2011-06-24 Completed [facility] 00:00:00 [facility] Allergen Extract 2011-06-24 Completed [facility]:00:00 [facility] allergen extract 2011-06-24 Completed [facility] 00:00:00 [facility] Allergen Extract 2011-06-24 Completed [facility]:00:00 [facility] allergen extract 2011-06-24 Completed [facility] 00:00:00 [facility] Allergen Extract 2011-06-24 Completed [facility]:00:00 [facility] allergen extract 2011-06-24 Completed [facility] 00:00:00 [facility] Allergen Extract 2011-06-24 Completed [facility]:00 [facility] allergen extract 2011-06-22 Completed [facility] 00:00:00 [facility] Allergen Extract 2011-06-22 Completed [facility]:00 [facility] allergen extract 2011-06-22 Completed [facility] 00:00:00 [facility] Allergen Extract 2011-06-22 Completed [facility]:00:00 [facility] allergen extract 2011-06-22 Completed [facility] 00:00:00 [facility] Allergen Extract 2011-06-22 Completed [facility] 00:00:00 [facility] allergen extract 2011-06-22 Completed [facility] 00:00:00 [facility] Allergen Extract 2011-06-22 Completed [facility]:00:00 [facility] allergen extract 2011-06-22 Completed [facility] 00:00:00 [facility] Allergen Extract 2011-06-22 Completed [facility]:00:00 [facility] allergen extract 2011-06-10 Completed [facility] 00:00:00 [facility] Allergen Extract 2011-06-10 Completed [facility]:00:00 [facility] allergen extract 2011-06-10 Completed [facility] 00:00:00 [facility] Allergen Extract 2011-06-10 Completed [facility]:00:00 [facility] allergen extract 2011-06-10 Completed [facility] 00:00:00 [facility] Allergen Extract 2011-06-10 Completed [facility]:00:00 [facility] allergen extract 2011-06-10 Completed [facility] 00:00:00 [facility] Allergen Extract 2011-06-10 Completed [facility] 00:00:00 [facility] allergen extract 2011-06-10 Completed [facility] 00:00:00 [facility] Allergen Extract 2011-06-10 Completed [facility]:00:00 [facility] allergen extract 2011-06-08 Completed [facility] 00:00:00 [facility] Allergen Extract 2011-06-08 Completed [facility]:00:00 [facility] allergen extract 2011-06-08 Completed [facility] 00:00:00 [facility] Allergen Extract 2011-06-08 Completed [facility]:00:00 [facility] allergen extract 2011-06-08 Completed [facility] 00:00:00 [facility] Allergen Extract 2011-06-08 Completed [facility]:00 [facility] allergen extract 2011-06-08 Completed [facility] 00:00:00 [facility] Allergen Extract 2011-06-08 Completed [facility]:00 [facility] allergen extract 2011-06-08 Completed [facility] 00:00:00 [facility] Allergen Extract 2011-06-08 Completed [facility]:00 [facility] allergen extract 2011-06-05 Completed [facility] 00:00:00 [facility] Allergen Extract 2011-06-05 Completed [facility]:00 [facility] allergen extract 2011-06-05 Completed [facility] 00:00:00 [facility] Allergen Extract 2011-06-05 Completed [facility]:00:00 [facility] allergen extract 2011-06-05 Completed [facility] 00:00:00 [facility] Allergen Extract 2011-06-05 Completed [facility]:00:00 [facility] allergen extract 2011-06-05 Completed [facility] 00:00:00 [facility] Allergen Extract 2011-06-05 Completed [facility]:00:00 [facility] allergen extract 2011-06-05 Completed [facility] 00:00:00 [facility] Allergen Extract 2011-06-05 Completed [facility]:00 [facility] allergen extract 2011-05-20 Completed [facility] 00:00:00 [facility] Allergen Extract 2011-05-20 Completed [facility]:00 [facility] allergen extract 2011-05-20 Completed [facility] 00:00:00 [facility] Allergen Extract 2011-05-20 Completed [facility]:00 [facility] allergen extract 2011-05-20 Completed [facility] 00:00:00 [facility] Allergen Extract 2011-05-20 Completed [facility]:00:00 [facility] allergen extract 2011-05-20 Completed [facility] 00:00:00 [facility] Allergen Extract 2011-05-20 Completed [facility]:00:00 [facility] allergen extract 2011-05-20 Completed [facility] 00:00:00 [facility] Allergen Extract 2011-05-20 Completed [facility]:00 [facility] allergen extract 2011-05-18 Completed [facility] 00:00:00 [facility] Allergen Extract 2011-05-18 Completed [facility]:00 [facility] allergen extract 2011-05-18 Completed [facility] 00:00:00 [facility] Allergen Extract 2011-05-18 Completed [facility]:00:00 [facility] allergen extract 2011-05-18 Completed [facility] 00:00:00 [facility] Allergen Extract 2011-05-18 Completed [facility] 00:00:00 [facility] allergen extract 2011-05-18 Completed [facility] 00:00:00 [facility] Allergen Extract 2011-05-18 Completed [facility] 00:00:00 [facility] allergen extract 2011-05-18 Completed [facility] 00:00:00 [facility] Allergen Extract 2011-05-18 Completed [facility] 00:00:00 [facility] allergen extract 2011-05-06 Completed [facility] 00:00:00 [facility] Allergen Extract 2011-05-06 Completed [facility] 00:00:00 [facility] allergen extract 2011-05-06 Completed [facility] 00:00:00 [facility] Allergen Extract 2011-05-06 Completed [facility] 00:00:00 [facility] allergen extract 2011-05-06 Completed [facility] 00:00:00 [facility] Allergen Extract 2011-05-06 Completed [facility]:00:00 [facility] allergen extract 2011-05-06 Completed [facility] 00:00:00 [facility] Allergen Extract 2011-05-06 Completed [facility]00 [facility] allergen extract 2011-05-06 Completed [facility] 00:[facility]:00 [facility] Allergen Extract 2011-05-06 Completed [facility] [facility] allergen extract 2011-05-01 Completed [facility] vial a 00:00:00 [facility] Allergen Extract 2011-05-01 Completed [facility] b 00:00:00 [facility] allergen extract 2011-05-01 Completed [facility] vial a 00:00:00 [facility] Allergen Extract 2011-05-01 Completed [facility] ty [facility] vial b 00:00:00 [facility] allergen extract 2011-05-01 Completed [facility]i ty of vial a 00:00:00 [facility] Allergen Extract 2011-05-01 Completed [facility]i ty of vial b 00:00:00 [facility] allergen extract 2011-05-01 Completed [facility]i ty [facility] vial a 00:00:00 [facility] Allergen Extract 2011-05-01 Completed [facility]i ty of vial b 00:00:00 [facility] allergen extract 2011-05-01 Completed Universi ty of vial a 00:00:00 [facility] Allergen Extract 2011-05-01 Completed [facility]i ty of vial b 00:00:00 [facility] allergen extract 2011-04-28 Completed Universi ty of vial a 00:00:00 [facility] Allergen Extract 2011-04-28 Completed Universi ty of vial b 00:00:00 [facility] allergen extract 2011-04-28 Completed [facility]i ty of vial a 00:00:00 [facility] Allergen Extract 2011-04-28 Completed [facility]i ty [facility] vial b 00:00:00 [facility] allergen extract 2011-04-28 Completed [facility]i ty of vial a 00:00:00 [facility] Allergen Extract 2011-04-28 Completed [facility]i ty of vial b 00:00:00 [facility] allergen extract 2011-04-28 Completed [facility]i ty [facility] vial a 00:00:00 [facility] Allergen Extract 2011-04-28 Completed [facility]i ty of vial b 00:00:00 [facility] allergen extract 2011-04-28 Completed [facility]i ty of vial a 00:00:00 [facility] Allergen Extract 2011-04-28 Completed [facility]i ty of vial b 00:00:00 [facility] allergen extract 2011-04-22 Completed [facility]i ty [facility] vial a 00:00:00 [facility] Allergen Extract 2011-04-22 Completed [facility]i ty [facility] vial b 00:00:00 [facility] allergen extract 2011-04-22 Completed [facility]i ty [facility] vial a 00:00:00 [facility] Allergen Extract 2011-04-22 Completed [facility]i ty [facility] vial b 00:00:00 [facility] allergen extract 2011-04-22 Completed [facility]i ty [facility] vial a 00:00:00 [facility] Allergen Extract 2011-04-22 Completed [facility]i ty of vial b 00:00:00 [facility] allergen extract 2011-04-22 Completed [facility]i ty [facility] vial a 00:00:00 [facility] Allergen Extract 2011-04-22 Completed [facility] vial b 00:00:00 [facility] allergen extract 2011-04-22 Completed [facility] ty [facility] vial a 00:00:00 [facility] Allergen Extract 2011-04-22 Completed [facility]i ty [facility] vial b 00:00:00 [facility] allergen extract 2011-04-13 Completed [facility] vial a 00:00:00 [facility] Allergen Extract 2011-04-13 Completed [facility]i [facility] vial b 00:00:00 [facility] allergen extract 2011-04-13 Completed [facility]i ty of vial a 00:00:00 [facility] Allergen Extract 2011-04-13 Completed [facility]i ty of vial b 00:00:00 [facility] allergen extract 2011-04-13 Completed [facility] vial a 00:00:00 [facility] Allergen Extract 2011-04-13 Completed [facility]i ty of vial b 00:00:00 [facility] allergen extract 2011-04-13 Completed [facility]i ty of vial a 00:00:00 [facility] Allergen Extract 2011-04-13 Completed [facility] ty [facility] vial b 00:00:00 [facility] allergen extract 2011-04-13 Completed [facility]i ty of vial a 00:00:00 [facility] Allergen Extract 2011-04-13 Completed [facility]i ty [facility] vial b 00:00:00 [facility] allergen extract 2011-04-06 Completed [facility] ty [facility] vial a 00:00:00 [facility] Allergen Extract 2011-04-06 Completed [facility] ty [facility] vial b 00:00:00 [facility] allergen extract 2011-04-06 Completed [facility] ty of vial a 00:00:00 [facility] Allergen Extract 2011-04-06 Completed [facility] vial b 00:00:00 [facility] allergen extract 2011-04-06 Completed [facility] vial a 00:00:00 [facility] Allergen Extract 2011-04-06 Completed [facility]i ty of vial b 00:00:00 [facility] allergen extract 2011-04-06 Completed [facility]i ty of vial a 00:00:00 [facility] Allergen Extract 2011-04-06 Completed [facility] ty [facility] vial b 00:00:00 [facility] allergen extract 2011-04-06 Completed [facility] ty [facility] vial a 00:00:00 [facility] Allergen Extract 2011-04-06 Completed [facility]i ty [facility] vial b 00:00:00 [facility] PFIZER COVID-19 Unknown Completed [facility] PFIZER COVID-19 Unknown Completed [facility] Vital Signs Vital Name Observation Time Observation Value Comments Source Systolic blood 2023-07-15 01:30:00 135 mm[Hg] Univer sity of pressure [facility] Diastolic blood 2023-07-15 01:30:00 87 mm[Hg] Unive rsity of pressure [facility] Heart rate 2023-07-15 01:30:00 88 /min Universi ty of [facility] Respiratory rate 2023-07-15 01:30:00 18 /min Univ ersity of [facility] Oxygen saturation in 2023-07-15 01:30:00 100 /min University of Arterial blood by [facility] Pulse oximetry Branch Body temperature 2023-07-14 21:05:00 36.61 Angelina [facility] Body height 2023-07-14 21:05:00 172.7 cm [facility] Body weight 2023-07-14 21:05:00 83.915 kg [facility] BMI 2023-07-14 21:05:00 28.13 kg/m2 [facility] Systolic blood 2023-05-31 13:14:00 110 mm[Hg] Univer sity of pressure [facility] Diastolic blood 2023-05-31 13:14:00 68 mm[Hg] Unive rsity of pressure [facility] Heart rate 2023-05-31 13:14:00 84 /min [facility] Body temperature 2023-05-31 13:14:00 36.28 Angelina [facility] Respiratory rate 2023-05-31 13:14:00 18 /min [facility] Body height 2023-05-31 13:14:00 172.7 cm [facility] Body weight 2023-05-31 13:14:00 83.507 kg [facility] BMI 2023-05-31 13:14:00 27.99 kg/m2 [facility] Oxygen saturation in 2023-05-31 13:14:00 98 /min University of Arterial blood by [facility] Pulse oximetry Branch Systolic blood 2020-04-25 18:00:00 133 mm[Hg] Univer sity of pressure [facility] Diastolic blood 2020-04-25 18:00:00 81 mm[Hg] Unive rsity of pressure [facility] Heart rate 2020-04-25 18:00:00 72 /min [facility] Respiratory rate 2020-04-25 18:00:00 18 /min [facility] Body height 2020-04-25 18:00:00 172.7 cm [facility] Body weight 2020-04-25 18:00:00 81.012 kg [facility] BMI 2020-04-25 18:00:00 27.16 kg/m2 [facility] Oxygen saturation in 2020-04-25 18:00:00 99 /min University of Arterial blood by [facility] Pulse oximetry Branch Systolic blood 2020-04-25 18:00:00 133 mm[Hg] Univer sity of pressure [facility] Diastolic blood 2020-04-25 18:00:00 81 mm[Hg] Unive rsity of pressure [facility] Heart rate 2020-04-25 18:00:00 72 /min [facility] Respiratory rate 2020-04-25 18:00:00 18 /min Univ ersity of [facility] Body height 2020-04-25 18:00:00 172.7 cm [facility] Body weight 2020-04-25 18:00:00 81.012 kg [facility] BMI 2020-04-25 18:00:00 27.16 kg/m2 [facility] Oxygen saturation in 2020-04-25 18:00:00 99 /min [facility] Arterial blood by [facility] Pulse oximetry [place] Procedures Procedure Date / Time Performing Clinician Source Performed CT ABDOMEN PELVIS W 2023-07-14 22:35:00 Micah Leo [facility] CONTRAST [facility] LIPASE 2023-07-14 21:55:00 Micah [facility] COMP. METABOLIC PANEL 2023-07-14 21:55:00 Leo Obrien [facility] ([id number]) [facility] POCT TEST 2023-07-14 21:35:00 Micah Leo [facility] CBC WITH DIFF 2023-07-14 21:20:00 Obrien, [facility] CONSENT/REFUSAL FOR 2023-07-14 21:04:23 Doctor Unassigned, No Un [facility] DIAGNOSIS AND TREATMENT Name Medical [place] POCT MOLECULAR FLU 2023-05-31 13:26:00 Gerald Genao [facility] POCT MOLECULAR STREP 2023-05-31 13:23:[address] [facility] AUTHORIZATION FOR 2023-05-31 05:01:00 Doctor Unassigned, No [facility]I Name Medical Branch REFERRAL- 2023-01-21 06:01:00 Doctor Unassigned, No [facility] REQUEST/RESPONSE Name [facility] ASSIGNMENT OF BENEFITS 2021-07-21 21:03:51 Doctor Unassigned, No [facility] Name [facility] Branch CONSENT/REFUSAL FOR 2020-04-25 17:50:57 [facility] Name [facility] Plan of Care Planned Activity Planned Date Details Comments Source Future Scheduled 2023-09-24 Hepatitis C [facility] Test 18:39:38 screening (procedure) [code = 522388801] Future Scheduled 2023-09-24 Screening for [facility] Test 18:39:38 malignant neoplasm of cervix (procedure) [code = 926420227] Future Scheduled 2023-09-24 COVID-19 VACCINE (3 [facility] Test 18:39:38 - season) [code = COVID-19 VACCINE (3 - season)] Future Scheduled 2023-09-24 [facility]ENZA [facility]ACCINE [facility] Test 18:39:38 (#1) [code = INFLUENZA VACCINE (#1)] Encounters Start End Encounter Admission Attending Care Care Encounter Source Date/Time Date/Time Type Type Clinicians Facility Department ID 2023-07-14 2023-07-14 Emergency X BERTHA HERNÁNDEZ [facility] KALINA [id number] Univers [facility]:06[facility] 2023-07-14 Emergency ObrienMay jacomeo [facility] 1.2.840. 114 [id number] Univers 16:06:00 21:08:00 Bertha Hernández HEALTH 350.1.13.10 i ty of CLEAR 4.2.7.2.686 [facility] [id number] [address] ([facility]) 2023-05-31 2023-05-31 Outpatient R HUMAN, [facility] [id number] Univers 08:00:00 08:41:26 GERALD lew [facility] 2023-05-31 2023-05-31 Office Human, [facility] 1.2.840.114 [id number] Univers 08:00:00 08:41:26 Visit Gerald REYNOLDSHERIBERTO 350.1.13.10 [place].2.[place] [facility] [phone] [facility] dical AND ADULT 314 Branch [facility] 2023-05-31 2023-05-31 Orders Doctor URIAH 1.2.840.114 [id number] Univers 00:00:00 00:00:00 Only Unassigned, RONNIE 350.1.13.10 [facility]y [facility] 4.2.7.2.686 Elijah as [phone] [address] 2023-02-22 2023-02-22 Outpatient R SAHRA [facility] [id number] Univers 10:30:00 10:30:00 KHOI lew [facility] 2023-01-21 2023-01-21 Orders Doctor URIAH 1.2.840.114 [id number] Univers 00:00:00 00:00:00 Only Unassigned, RONNIE 350.1.13.10 ity of [place] [facility] 4.2.7.2.686 Elijah as [phone] [address] 2022-11-30 2022-11-30 Lab 1.2.840.1 [id number] Methodi 12:45:00 12:50:[address] 3.430.2.7 Hospit a .3.513713 l .8 2022-11-30 2022-11-30 Outpatient [facility] [id number] [place] 00:00:00 00:00:00 851 Method i 2022-09-28 2022-09-28 Outpatient [facility] [id number] [place] 00:00:00 00:00:00 NIKHIL 432 Method i 2021-12-18 2021-12-18 Laboratory Only, Pcp [address] Test [facility] 1.2.840.114 [id number] Univers 13:15:00 13:30:00 Only Malorie Russ PRIMARY 350.1.13.10 [place] C[place].2.[place] [id number] Ct dical 042 Branch 2021-12-18 2021-12-18 Outpatient R CINDY [facility] [id number] Univers 13:15:00 13:15:00 MALORIE vipin [facility] 2021-08-01 2021-08-01 Laboratory Only, Pcp [address] Test [facility] 1.2.840.114 [id number] Univers 08:40:38 08:55:38 Only Malorie Russ H PRIMARY 350.1.13.10 it[place].2.[place] [id number] Ct dical [address] [place] [address] 2021-08-01 2021-08-01 Outpatient R CINDY [facility] [id number] Univers 08:45:00 08:45:00 MALORIE sandovalmillie [facility] 2021-08-01 2021-08-01 Letter URIAH Fischer 1.2.840.114 [id number] Univers 00:00:00 00:00:00 (Out) Marija TRUJILLO 350.1.13.10 it y of HOSPITAL 4.2.7.2.686 Elijah as [phone] [address] 2021-08-01 2021-08-01 Nurse URIAH Leon 1.2.430.915 [id number] Univers 00:00:00 00:00:00 Triage Jax RONNIE 350.1.13.10 it y of HOSPITAL 4.2.7.2.686 [place] as [phone] [address] 2021-07-22 2021-07-22 URIAH Cyr 1.2.840.114 [id number] Univers 00:00:00 00:00:00 (Out) Aneatrice RONNIE 350.1.13.10 ity of HOSPITAL 4.2.7.2.686 [place] as [phone] [address] 2021-07-22 2021-07-22 URIAH Cyr 1.2.840.114 [id number] Univers 00:00:00 00:00:00 (Out) Aneatrice RONNIE 350.1.13.10 ity of HOSPITAL 4.2.7.2.686 [place] as [id number] [address] 2021-07-21 2021-07-21 Laboratory Only, Gal Adult Uc Test [facility] 1.2.840.114 [id number] Univers 16:03:47 16:18:47 Only Unknown, [place] 350.1.13.10 ity of [place].2.686 [place] [id number] [facility] [address] [place] 2021-07-21 2021-07-21 Laboratory Only, Gal Adult Uc Test [facility] 1.2.840.114 [id number] Univers 16:03:47 16:18:47 Only Unknown, [place] 350.1.13.10 ity of Pediatric [place]2.7.2.686 [place] [phone] [facility] [address] [place] 2021-07-21 2021-07-21 Outpatient R UNKNOWN, [facility] [id number] Univers 16:00:00 16:00:00 ATTENDING ity [facility] 2021-07-21 2021-07-21 Orders Doctor KRUSE 1Pasha2.840.114 [id number] Univers 00:00:00 00:00:00 Only Unassigned, RONNIE 350.1.13.10 [facility] 4.2.7.2.686 Elijah as [phone] [facility] 00[address] [place] 2021-07-21 2021-07-21 Orders Doctor KRUSE 1.2.840.114 [id number] Univers 00:00:00 00:00:00 Only Unassigned, RONNIE 350.1.13.10 [facility] 4.2.7.2.686 Elijah as [phone] [facility] 009 [place] 2021-07-07 2021-07-07 Telephone URIAH Edmondson2.464.345 [id number] Univers 00:00:00 00:00:00 Kayleen BLAIRY 350.1.13.10 i ty of HOSPITAL 4.2.7.2.686 [place] [phone] [facility] 019 Branch 2021-07-06 2021-07-06 Outpatient R UNKNOWN, [facility] [id number] Univers 14:30:00 14:30:00 ATTENDING ity [facility] 2021-07-06 2021-07-06 Laboratory Nurse, Gal Adult Urgent [facility] 1.2.840.114 [id number] Univers 11:44:53 11:59:53 Only Unknown, [place] 350.1.13.10 ity of Pediatric [place].2.7.2.686 [place] [phone] [place] [address] Branch 2021-04-09 2021-04-09 Outpatient GCCOVIDV GCCOVIDV [id number] GCCOVID 00:00:00 00:00:00 V 2021-04-09 2021-04-09 Outpatient [facility] [id number] [place] 00:00:00 00:00:00 529 Method i 2021-03-19 2021-03-19 Outpatient GCCOVIDV GCCOVIDV [id number] GCCOVID 00:00:00 00:00:00 V 2021-03-19 2021-03-19 Outpatient [facility] [id number] [place] 00:00:00 00:00:00 553 Method i 2020-12-24 2020-12-24 [facility] [id number] [place] 00:00:00 00:00:00 NIKHIL 394 Method i 2020-12-18 2020-12-18 Outpatient YANEZ, [facility] 021 [id number] [place] 00:00:00 00:00:00 NIKHIL 385 Method i 2020-12-13 2020-12-13 Outpatient YANEZ, [facility] [id number] [place] 00:00:00 00:00:00 NIKHIL 915 Method i 2020-11-05 2020-11-05 [facility] [id number] [place] 00:00:00 00:00:00 NIKHIL 081 Method i 2020-10-15 2020-10-15 Outpatient [facility] [id number] [place] 00:00:00 00:00:00 197 Method i 2020-08-02 2020-08-02 Telephone SAMI Sanon 1.2.840.114 [id number] [facility] 00:00:00 00:00:00 [facility] 350.1.13.10 it y of Clear 4.2.7.2.686 Zamzam maldonado [place] [phone] [place] 776539 Branch Office Building 2020-07-22 2020-07-22 Outpatient PEAKES, [facility] [id number] [place] 00:00:00 00:00:00 DONOVAN 088 Method i 2020-06-25 2020-06-25 Outpatient R TALITA [facility] [id number] Univers 14:30:00 14:30:00 RAFIC ity of [facility] 2020-06-25 2020-06-25 Telephone Glendy Carpenter 1.2.840.114 [id number] 00:00:00 00:00:00 RONNIE 350.1.13.10 [facility] 4.2.7.2.686 [id number] 019 2020-06-25 2020-06-25 Telephone Glendy Carpenter 1.2.840.114 [id number] [facility] 00:00:00 00:00:00 RONNIE 350.1.13.10 it y of HOSPITAL 4.2.7.2.686 Elijah as [phone] [address] 2020-06-24 2020-06-24 Laboratory Only, Clc [facility] 1.2.840.114 [id number] 09:35:04 09:50:04 Only Bls Test Health 350.1.13.10 [place] 4.2.7.2.686 [place] [phone] [place] [address] Office Building 2020-06-24 2020-06-24 Laboratory Only, Clc Bls Test [facility] 1.2. 840.114 [id number] Univers 09:35:04 09:50:04 Only Talita [facility] 350.1.13.10 [place] [phone] [address] Office Building 2020-06-24 2020-06-24 Outpatient R [facility] [id number] [facility] 09:30:00 09:30:00 ity [facility] 2020-05-16 2020-05-16 Outpatient LUCIANO, [facility] [id number] [place] 00:00:00 00:00:[address] 2020-05-16 2020-05-16 Outpatient LUCIANO, [facility] [id number] [place] 00:00:00 00:00:00 HAYDEN 734 Method i 2020-05-06 2020-05-06 Outpatient LUCIANO, [facility] [id number] [place] 00:00:00 00:00:[address]AYDEN [address] 2020-04-25 2020-04-25 Office [facility] 1.2.348.779 [id number] 12:52:08 22:25:33 Visit [facility] 350.1.13.10 [place] 4.2.7.2.686 [place] [phone] [address] 2020-04-25 2020-04-25 Office [facility] [id number] [id number] [facility] 12:52:08 22:25:33 Visit [facility] 350.1.13.10 it [place] [id number] [address] 2020-04-25 2020-04-25 Outpatient R [facility] [id number] Univers 13:00:00 13:00:00 RAFIC ity of [facility] 2020-04-25 2020-04-25 Orders Doctor URIAH 1.2.840.114 [id number] Univers 00:00:00 00:00:00 Only Unassigned, RONNIE 350.1.13.10 ity of [place] [facility] 4.2.7.2.686 Elijah as [phone] [address] 2020-04-16 2020-04-16 Outpatient LUCIANO, [facility] [id number] [place] 00:00:00 00:00:00 HAYDEN [address] 2020-03-21 2020-03-21 Telephone [facility] 1.2.840.114 [id number] Univers 00:00:00 00:00:00 [facility] 350.1.13.10 it [place] [phone] [address] Office [facility] Results Test Description Test Time Test Comments Results Result Comments Source COMP. METABOLIC PANEL (15773) 2023-07-14 22:21:39 Test Item Value Reference Range Interpretation Comme nts NA (test code = 2909010424) 134 mmol/L 135-145 L K (test code = 8641319810) 3.3 mmol/L 3.5-5.0 L CL (test code = 8330441462) 101 mmol/L 98-108 CO2 TOTAL (test code = 9722805019) 25 mmol/L 23-31 AGAP (test code = 4321375224) 8 2-16 BUN (test code = 6270072877) 14 mg/dL 7-23 GLUCOSE (test code = 3883876895) 102 mg/dL 70-110 CREATININE (test code = 0.58 mg/dL 0.50-1.04 5681563237) TOTAL BILI (test code = 1.2 mg/dL 0.1-1.1 H 5748462854) CALCIUM (test code = 9785849736) 8.9 mg/dL 8.6-10.6 T PROTEIN (test code = 0210107693) 8.2 g/dL 6.3-8.2 ALBUMIN (test code = 6854995223) 4.5 g/dL 3.5-5.0 ALK PHOS (test code = 5430064509) 87 U/L 34-122 ALTv (test code = 1742-6) 82 U/L 5-35 H AST(SGOT) (test code = 1294696020) 136 U/L 13-40 H eGFR (test code = 6468486104) 116.3 mL/min/1.73m2 MECHE (test code = MECHE) Association of Glomerular Filtration Rate (GFR) and Staging of Kidney Disease* + +-------- + ------+| GFR (mL/min/1.73 m2) ?| With Kidney Damage ?| ?Without Kidney Damage+ +-- + +| ?>90 ?| ?Stage one ?| ? Normal ?+ +------- + -------+| ?60-89 ?| ?Stage two ?| ? Decreased GFR ? + +-------- + ------+| ?30-59 ?| ?Stage three ?| ? Stage three ? + +-------- + ------+| ?15-29 ?| ?Stage four ? | ? Stage four ?+ +------- + -------+| ?<15 (or dialysis) ? ?| ?Stage five ? | ? Stage five ?+ +------- + -------+ *Each stage assumes the associated GFR level has been in effect for at least three months. ?Stages 1 to 5, with or without kidney disease, indicate chronic kidney disease. Notes: Determination of stages one and two (with eGFR >59mL/min/1.73 m2) requires estimation of kidney damage for at least three months as defined by structural or functional abnormalities of the kidney, manifested by either:Pathological abnormalities or Markers of kidney damage (including abnormalities in the composition of the blood or urine or abnormalities in imaging tests). Lab Interpretation (test code = Abnormal 16822-1) [facility]21[facility]39 Test Item Value Reference Range Interpretation Comments LIPASE (test code = 3630037297) 97 U/L 0-220 Lab Interpretation (test code = Normal 84477-1) [facility] [id number] 21:35:00 Test Item Value Reference Range Interpretation Comments POCT PREG (test code = 1605) Negative On board controls acceptable with C Yes Line (test code = 3574) POCT PREG LOT # (test code = 3575) [id number] POCT PREG TEST DATE (test 11/24/24 code = 3576) Lab Interpretation (test code = Normal 30050-1) [facility] [id number] 21:33:20 Test Item Value Reference Range Interpretation Comments WBC (test code = 11.51 See_Comment H [Automated 9185-2) message] The sy stem which generated this result transmitted reference range : 4.30 - 11.10 10*3/?L. The reference range was not used to interpret this result as normal/abnormal . RBC (test code = 4.83 See_Comment [Automated 522-8) message] The sy stem which generated this result transmitted reference range : 3.93 - 5.25 10*6/?L. The reference range was not used to interpret this result as normal/abnormal . HGB (test code = 13.4 g/dL 11.6-15.0 718-7) HCT (test code = 39.8 % 35.7-45.2 4544-3) MCV (test code = 82.4 fL 80.6-95.5 787-2) MCH (test code = 27.7 pg 25.9-32.8 785-6) MCHC (test code = 33.7 g/dL 31.6-35.1 786-4) RDW-SD (test code = 41.2 fL 39.0-49.9 56540-3) RDW-CV (test code = 13.9 % 12.0-15.5 788-0) PLT (test code = 247 See_Comment [Automated 777-3) message] The sy stem which generated this result transmitted reference range : 166 - 358 10*3/ ?L. The reference r chano was not used to interpret this result as normal/abnormal . MPV (test code = 10.6 fL 9.5-12.9 06079-9) NRBC/100 WBC (test 0.0 See_Comment [Automat ed code = 2324164189) message] The system which generated this result transmitted reference range : 0.0 - 10.0 /100 WBCs. The refer ence range was not u sed to interpret th is result as normal/abnormal . NRBC x10^3 (test code See_Comment [Auto mated = 7117066816) message] The s ystem which generated this result transmitted reference range : 10*3/?L. The reference range was not used to interpret this result as normal/abnormal . GRAN MAT (NEUT) % 77.9 % (test code = 770-8) IMM GRAN % (test code 0.30 % = 7887404305) LYMPH % (test code = 14.3 % 736-9) MONO % (test code = 6.5 % 5905-5) EOS % (test code = 0.7 % 713-8) BASO % (test code = 0.3 % 706-2) GRAN MAT x10^3(ANC) 8.96 10*3/uL 1.88-7.09 H (test code = 6262121961) IMM GRAN x10^3 (test 0.03 10*3/uL 0.00-0.06 code = 6731453983) LYMPH x10^3 (test code 1.65 10*3/uL 1.32-3.29 = 731-0) MONO x10^3 (test code 0.75 10*3/uL 0.33-0.92 = 742-7) EOS x10^3 (test code = 0.08 10*3/uL 0.03-0.39 711-2) BASO x10^3 (test code 0.04 10*3/uL 0.01-0.07 = 704-7) Lab Interpretation Abnormal (test code = 36390-5) [facility] MOLECULAR [id number] 13:40:13 Test Item Value Reference Range Interpretation Comments POCT Molecular FluA (test code = Negative Negative 79842-4) POCT Molecular FluB (test code = Negative Negative 11985-1) Lab Interpretation (test code = Normal 53255-2) [facility] MOLECULAR [id number] 13:40:13 Test Item Value Reference Range Interpretation Comments POCT Molecular FluA (test code = Negative Negative 45194-7) POCT Molecular FluB (test code = Negative Negative 80191-8) Lab Interpretation (test code = Normal 24754-1) [facility] MOLECULAR [id number] 13:30:50 Test Item Value Reference Range Interpretation Comments POCT Molecular Strep (test code = Negative Negative 66373-8) Lab Interpretation (test code = Normal 57247-0) [facility] MOLECULAR [id number] 13:30:50 Test Item Value Reference Range Interpretation Comments POCT Molecular Strep (test code = Negative Negative 67922-7) Lab Interpretation (test code = Normal 38535-4) [facility] [Presence] in Respiratory specimen by TRAVIS with probe [id number] 14:42:29 Test Item Value Reference Range Interpretation Comments SARS-CoV-2 (COVID-19) RNA Not detected Not-Detected [Presence] in Respiratory specimen by TRAVIS with probe detection (test code = 94456-1) [facility] Notes Date/Time Note Provider Source 2023-07-14 20:59:48 [id number]:59:48Formatting [facility] [place] - [facility] of this note might be different from the original.Social Work Note:07/14/2023 9:00 PMSW attempted SFA. Pt was dc home. JORDYN Bonilla [facility] Department of Care Management ED Slps E: [email or web address]: [email or web address] signed by Angelica Hernandez LBSW at 07/14/2023 9:00 PM [id number] department GmwmKD0273-93-96Q81:00:16[facility] [id number] [id number] ailable for patient [id number] NoteLN[address]TXTX[address] [id number]:00:161.2.840.11 4350.1.72.3.15|1.2.840.117399 .1.13.104.2.7.2.727879_188170 5822 2023-07-14 16:04:25 5799-50-86S83:04:25Formatting Lynn de la torre RN [facility] of this note might be different from the original.C/O epigastric abdominal pain, sudden onset @ noon today, radiating to the Right sided abdomen. Associated nausea,vomiting. Denies diarrhea or fever. [id number] department Triage jogsGM1221-07-50L45:05:23[facility] Triage [id number] [id number] ailable for patient [id number] department [id number] C Flynn RN[address]TX[address] [id number]:05:231.2.840.11 4350.1.72.3.15|1.2.840.335138 .[id number] 6006"
[2023-10-14] MEDS ORDERED: ONDANSETRON 4 MG/2 ML VIAL ONE (02:43)
[2023-10-14] MEDS ORDERED: KETOROLAC 30 MG/ML INJ ONE ×2 (02:43→04:54)
[2023-10-14] MEDS ORDERED: FAMOTIDINE 20 MG/2 ML VIAL IV ONE (02:44)
[2023-10-14] MEDS ORDERED: NA CHLORIDE 0.9% 1,000 ML ONE (02:44)
[2023-10-14 03:18] LABS: Absolute Lymphocytes (CBC) 2.8 K/uL (0.7-4.9); Hematocrit 39.4 % (36.0-45.0); Lymphocytes % 35.4 % (15.3-44.8); MCV 86.2 fL (80-100); MPV 8.5 fL (7.6-11.3); Platelets 250 thou/uL (152-406); RBC Red Blood Cell Count 4.58 M/uL (3.86-4.86)
[2023-10-14 04:12] LABS: Specific Gravity 1.011 (1.005-1.030)
[2023-10-14 04:18] LABS: Bilirubin Total 0.5 mg/dL (0.2-1.0); Protein, Total 8.6 g/dL (6.4-8.2)
[2023-10-14 04:19] LABS: Specific Gravity 1.011 (1.005-1.030); Urine Bacteria <20 /HPF (<20); Urine Bilirubin NEGATIVE (Negative); Urine Blood Negative (Negative); Urine Clarity Extremely Turbid (Clear); Urine Color Colorless (Yellow); Urine Glucose NEGATIVE (Negative); Urine Mucus Slight /HPF (None Seen); Urine Protein NEGATIVE (Negative); Urine RBC <5 /HPF (None Seen); Urine Urobilinogen Normal (Normal)
[2023-10-14 04:20] LABS: Potassium 4.1 mEq/L (3.5-5.1)
[2023-10-14] MEDS ORDERED: DICYCLOMINE HCL 20 MG/2 ML AMP IM ONE (04:55)
[2023-10-14] MEDS ORDERED: IBUPROFEN 400 MG TAB ONE (06:12)
[2023-10-14] MEDS ORDERED: ACETAMINOPHEN 500 MG TAB ONE (06:12)
--- NOTE | 2023-10-14 06:42 | EDPHYS ---
Physician Documentation [facility] Name: Leigh Ann Bain Age: 38 yrs Sex: Female : 1985 Arrival Date: 10/14/2023 Time: 02:16 Bed 7 Private MD: ED Physician Santana Will HPI: 10/14 02:24 This 38 yrs old Female presents to ER via Ambulatory with complaints of Abdominal Pain. kb 02:24 Patient is a 38-year-old female who presents for right upper quadrant pain and nausea kb that started 1 hour prior to arrival. Patient states she had similar episode 3 months ago and was told it was her gallbladder. At that time patient was placed on antibiotics and she has not had any problems until today. Patient has not followed up with GI or surgery.. Historical: - Allergies: 02:27 No Known Allergies; rv - PMHx: 02: cholelithiasis; rv - PSHx: :27 None; rv - Immunization history:: Adult Immunizations up to date. - Social history:: Smoking status: Patient denies any tobacco usage or history of. ROS: 02:23 Constitutional: Negative for fever, chills, and weight loss, kb 02:23 Abdomen/GI: Positive for abdominal pain, nausea, Negative for vomiting, diarrhea, constipation, 02:23 All other systems are negative, Exam: 02:23 Constitutional: This is a well developed, well nourished patient who is awake, alert, kb and in no acute distress. Head/Face: Normocephalic, atraumatic. ENT: Moist Mucous membranes Cardiovascular: Regular rate Respiratory: Respirations even and unlabored. No increased work of breathing. Talking in full sentences Skin: Warm, dry with normal turgor. Normal color. MS/ Extremity: Pulses equal, no cyanosis. Neurovascular intact. Full, normal range of motion. Neuro: Awake and alert, GCS 15, oriented to person, place, time, and situation. Moves all extremities. Normal gait. 02:23 Abdomen/GI: Inspection: abdomen appears normal, Bowel sounds: normal, Palpation: soft, in all quadrants, moderate abdominal tenderness, in the right upper quadrant, Vital Signs: 02:22 BP 152 / 102; Pulse 87; Resp 17; Temp 98.8; Pulse Ox 100% ; rv 03:45 BP 131 / 84; Pulse 76; Resp 1; Pulse Ox 100% ; jj7 04:46 BP 125 / 84; Pulse 83; Resp 19; Pulse Ox 100% ; jj7 05:45 BP 137 / 79; Pulse 75; Resp 16; Pulse Ox 100% ; jj7 06:59 BP 131 / 74; Pulse 73; Resp 15; Pulse Ox 99% ; jj7 MDM: 02:18 Patient medically screened. kb 02:24 Differential diagnosis: cholecystitis, Cholelithiasis, gastritis, gastroesophageal kb reflux disease, non-specific abd pain. Data reviewed: vital signs, nurses notes. 03:54 ED course: US - CLINICAL HISTORY: 38 years Female; ABD PAIN TECHNIQUE: Limited sp4 abdominal ultrasound was performed. COMPARISON: None. FINDINGS: Liver: Heterogeneous echotexture with scattered areas of focal fatty sparing. No focal lesions. Gallbladder: Gallstones present. No p pericholecystic fluid. Gallbladder wall measures 1 mm. Common bile duct: 4 mm. IMPRESSION: Cholelithiasis without sonographic evidence of acute cholecystitis. . 06:33 ED course: CT - abdomen , pelvis COMPARISON: None. FINDINGS: Lower thorax: Lung bases sp4 are clear Abdomen: Stomach:Within normal limits Liver:No focal lesions. Hepatic steatosis. Enlarged. No intrahepatic ductal distention. Gallbladder:Mildly distended. Pancreas:Within normal limits Spleen:Within normal limits Right kidney:No hydronephrosis. 3 mm renal stone. Left kidney:No hydronephrosis. No focal lesion. Adrenal glands:Within normal limits Vascular structures:Atherosclerosis of the abdominal aorta and major branches. Nodes:No lymphadenopathy by size criteria Pelvis: Small bowel:No significant distention. Appendix:Within normal limits Colon:No distention or acute pericolonic edema. Peritoneum: No free air. Trace free fluid in the pelvis. Bones: No acute bone findings. Bladder: Unremarkable. Reproductive organs: No acute findings. IMPRESSION: 1. No acute abdominopelvic findings. 2. Hepatomegaly with hepatic steatosis. 3. Right-sided nephrolithiasis. No hydronephrosis. 4. Trace free fluid in the pelvis, likely physiologic. Electronically signed by: Caridad Amaya MD 10/14/2023 06:03 AM. 10/14 02:22 Order name: CBC with Diff; Complete Time: 03:54 kb 10/14 02:22 Order name: CMP; Complete Time: 04:28 kb 10/14 02:22 Order name: Lipase; Complete Time: 04:28 kb 10/14 02:22 Order name: Test, Urine; Complete Time: 04:28 kb 10/14 02:22 Order name: Urinalysis w/ reflexes; Complete Time: 04:28 kb 10/14 02:22 Order name: US Abdomen Limited kb 10/14 04:37 Order name: CT Abd/Pelvis - IV Contrast Only sp4 10/14 02:22 Order name: IV Saline Lock; Complete Time: 02:48 kb 10/14 02:22 Order name: Labs collected and sent; Complete Time: 02:48 kb Administered Medications: 02:47 Drug: Famotidine IVP 20 mg IVP once; dilute with 10 mL 0.9% NaCl; give over 2 minutes jj7 Route: IVP; Site: right forearm; 03:00 Follow up: Response: No adverse reaction jj7 02:48 Drug: NS 0.9% IV 1000 ml IV at 1 bolus Per protocol; 1000 mL bolus Route: IV; Rate: 1 jj7 bolus; Site: right forearm; 02:48 Drug: TORadol - Ketorolac IVP 15 mg IVP once Route: IVP; Site: right forearm; jj7 03:00 Follow up: Response: Pain is decreased jj7 02:48 Drug: Ondansetron IVP 4 mg IVP once; over 2 minutes Route: IVP; Site: right forearm; jj7 03:00 Follow up: Response: Nausea is decreased jj7 04:51 Drug: Ketorolac IVP 15 mg IVP once Route: IVP; Site: right forearm; jj7 05:15 Follow up: Response: No change in condition jj7 04:52 Drug: Dicyclomine IM 20 mg IM once Route: IM; Site: right gluteus; jj7 05:15 Follow up: Response: No change in condition jj7 06:04 Drug: Ibuprofen PO 800 mg PO once Route: PO; jj7 06:57 Follow up: Response: No adverse reaction jj7 06:04 Drug: Acetaminophen PO 1000 mg PO once Route: PO; jj7 06:57 Follow up: Response: No adverse reaction jj7 Disposition: 03:55 Co-signature as Attending Physician, Santana Will MD I agree with the assessment sp4 and plan of care. I reviewed the patient's care provided by Advanced Practice Provider \T\ agree w/ the diagnosis \T\ care plan. I personally saw the pt \T\ performed a substantive portion of the visit, incldng all aspects of the (History/Exam/Medical Decision Making). Disposition Summary: 10/14/23 06:41 Discharge Ordered Notes: Location: Home sp4 Problem: new sp4 Symptoms: have improved sp4 Condition: Stable sp4 Diagnosis - Other cholelithiasis without obstruction sp4 - biliary colic sp4 Followup: sp4 - With: Private Physician - When: 7 - 10 days - Reason: Recheck today's complaints Discharge Instructions: - Discharge Summary Sheet sp4 - Cholelithiasis sp4 Forms: - Patient Portal Instructions sp4 Prescriptions: - naproxen 500 mg Oral tablet - take 1 tablet ORAL route every 12 hours PRN pain; 30 tablet; Refills: 0, sp4 Product Selection Permitted - dicyclomine 20 mg Oral tablet - take 1 tablet ORAL route every 6 hours PRN abdominal pain; 30 tablet; Refills: sp4 0, Product Selection Permitted - ondansetron 8 mg Oral Tablet,disintegrating - take 1 tablet ORAL route every 6 hours PRN nausea; 30 tablet; Refills: 0, sp4 Product Selection Permitted Signatures: Dispatcher [employer] Lexus Alexander, BUSINESS CONTROL SPECIALIST-C BUSINESS CONTROL SPECIALIST-José Miguel Rojas, RN Solo Oglesby RN RN jj7 Santana Will MD MD sp4
--- NOTE | 2023-10-14 06:42 | ER ---
Nurse's Notes [facility] Name: Leigh Ann Bain Age: 38 yrs Sex: Female : 1985 Arrival Date: 10/14/2023 Time: 02:16 Bed 7 Private MD: Diagnosis: Other cholelithiasis without obstruction;biliary colic Presentation: 10/14 02:22 Chief complaint: Patient states: sudden onset of RUQ pain, diagnosed with gall bladder rv stones 3 months ago. with nausea, wo vomiting. Coronavirus screen: At this time, the client does not indicate any symptoms associated with coronavirus-19. Ebola Screen: No symptoms or risks identified at this time. Initial Sepsis Screen: Does the patient meet any 2 criteria? No. Patient's initial sepsis screen is negative. Does the patient have a suspected source of infection? No. Patient's initial sepsis screen is negative. Risk Assessment: Do you want to hurt yourself or someone else? Patient reports no desire to harm self or others. 02:22 Method Of Arrival: Ambulatory rv 02:30 Acuity: JENNIFER 3 jj7 Triage Assessment: 02:27 General: Appears in no apparent distress. Behavior is calm, cooperative. Pain: rv Complains of pain in abdomen. Neuro: 02:30 Neuro: Level of Consciousness is awake, alert, obeys commands, Oriented to person, rv place, time, situation. Cardiovascular: Capillary refill < 3 seconds Patient's skin is warm and dry. Respiratory: Airway is patent Respiratory effort is even, unlabored. GI: Abdomen is round non-distended. : No signs and/or symptoms were reported regarding the genitourinary system. Derm: Skin is intact. Historical: - Allergies: 02:27 No Known Allergies; rv - PMHx: 02:27 cholelithiasis; rv - PSHx: 02:27 None; rv - Immunization history:: Adult Immunizations up to date. - Social history:: Smoking status: Patient denies any tobacco usage or history of. Screenin:[address] [facility] ED Fall Risk Assessment (Adult) History of falling in the last 3 months, jj7 including since admission No falls in past 3 months (0 pts) Confusion or Disorientation No (0 pts) Intoxicated or Sedated No (0 pts) Impaired Gait No (0 pts) Mobility Assist Device Used No (0 pt) Altered Elimination No (0 pt) Score/Fall Risk Level 0 - 2 = Low Risk Oriented to surroundings, Maintained a safe environment. Abuse screen: Denies threats or abuse. Nutritional screening: No deficits noted. Tuberculosis screening: No symptoms or risk factors identified. Assessment: 02:50 Reassessment: SEE TRIAGE ASSESSMENT. jj7 Vital Signs: 02:22 BP 152 / 102; Pulse 87; Resp 17; Temp 98.8; Pulse Ox 100% ; rv 03:45 BP 131 / 84; Pulse 76; Resp 1; Pulse Ox 100% ; jj7 04:46 BP 125 / 84; Pulse 83; Resp 19; Pulse Ox 100% ; jj7 05:45 BP 137 / 79; Pulse 75; Resp 16; Pulse Ox 100% ; jj7 06:59 BP 131 / 74; Pulse 73; Resp 15; Pulse Ox 99% ; jj7 ED Course: 02:17 Patient arrived in ED. jj6 02:18 Lexus Morfin FNP-C [facility]. kb 02:18 Santana Will MD is Attending Physician. kb 02:25 Solo Stephenson RN is Primary Nurse. jj7 02:30 Arm band placed on right wrist. rv 02:45 Inserted saline lock: 20 gauge in right forearm, using aseptic technique. Blood jj7 collected. 02:48 CBC with Diff Sent. jj7 02:48 CMP Sent. jj7 02:48 Lipase Sent. jj7 02:49 Patient has correct armband on for positive identification. Bed in low position. Call jj7 light in reach. Adult w/ patient. 02:49 Test, Urine Sent. jj7 02:49 Urinalysis w/ reflexes Sent. jj7 03:02 US Abdomen Limited In Process Unspecified. EDMS 05:13 CT Abd/Pelvis - IV Contrast Only In Process Unspecified. EDMS 06:57 Triage completed. jj7 06:57 No provider procedures requiring assistance completed. IV discontinued, intact, jj7 bleeding controlled, No redness/swelling at site. Pressure dressing applied. Administered Medications: 02:47 Drug: Famotidine IVP 20 mg IVP once; dilute with 10 mL 0.9% NaCl; give over 2 minutes jj7 Route: IVP; Site: right forearm; 03:00 Follow up: Response: No adverse reaction jj7 02:48 Drug: NS 0.9% IV 1000 ml IV at 1 bolus Per protocol; 1000 mL bolus Route: IV; Rate: 1 jj7 bolus; Site: right forearm; 02:48 Drug: TORadol - Ketorolac IVP 15 mg IVP once Route: IVP; Site: right forearm; jj7 03:00 Follow up: Response: Pain is decreased jj7 02:48 Drug: Ondansetron IVP 4 mg IVP once; over 2 minutes Route: IVP; Site: right forearm; jj7 03:00 Follow up: Response: Nausea is decreased jj7 04:51 Drug: Ketorolac IVP 15 mg IVP once Route: IVP; Site: right forearm; jj7 05:15 Follow up: Response: No change in condition jj7 04:52 Drug: Dicyclomine IM 20 mg IM once Route: IM; Site: right gluteus; jj7 05:15 Follow up: Response: No change in condition jj7 06:04 Drug: Ibuprofen PO 800 mg PO once Route: PO; jj7 06:57 Follow up: Response: No adverse reaction jj7 06:04 Drug: Acetaminophen PO 1000 mg PO once Route: PO; jj7 06:57 Follow up: Response: No adverse reaction jj7 Medication: 06:58 VIS not applicable for this client. jj7 Outcome: 06:41 Discharge ordered by MD. [email or web address] 06:57 Discharged to home ambulatory, with significant other, jj7 06:57 Condition: improved 06:57 Discharge instructions given to patient, Instructed on discharge instructions, follow up and referral plans. medication usage, Demonstrated understanding of instructions, follow-up care, medications, Prescriptions given X 3, 07:00 Patient left the ED. jj7 Signatures: Dispatcher [employer] EDMS Lexus Morfin, [place]-José Miguel Rojas, RN Kristina Mccollum jj6 Solo Stephenson RN RN jj7 Santana Will MD MD sp4
[2023-10-14 07:14] VITALS: TEMP 98.8
[2023-10-14 07:28] VITALS: BP 131/74; O2SAT 99
--- NOTE | 2023-10-15 16:34 | RAD REPORT ---
EXAM DESCRIPTION: CT - Abdomen Pelvis W Contrast - 10/14/2023 6:52 am CLINICAL HISTORY: 38 years Female; RUQ PAIN; IV ONLY Bed Name: 7 TECHNIQUE: CT of the abdomen and pelvis with intravenous contrast. All CT scans at this facility use dose modulation, iterative reconstruction, and/or weight based dosi ng when appropriate to reduce radiation dose to as low as reasonably achievable. COMPARISON: None. FINDINGS: Lower thorax: Lung bases are clear Abdomen: Stomach: Within normal limits Liver: No focal lesions. Hepatic steatosis. Enlarged. No intrahepatic ductal distention. Gallbladder: Mildly distended. Pancreas: Within normal limits Spleen: Within normal limits Right kidney: No hydronephrosis. 3 mm renal stone. Left kidney: No hydronephrosis. No focal lesion. Adrenal glands: Within normal limits Vascular structures: Atherosclerosis of the abdominal aorta and major branches. Nodes: No lymphadenopathy by size criteria Pelvis: Small bowel: No significant distention. Appendix: Within normal limits Colon: No distention or acute pericolonic edema. Peritoneum: No free air. Trace free fluid in the pelvis. Bones: No acute bone findings. Bladder: Unremarkable. Reproductive organs: No acute findings. IMPRESSION: 1. No acute abdominopelvic findings. 2. Hepatomegaly with hepatic steatosis. 3. Right-sided nephrolithiasis. No hydronephrosis. 4. Trace free fluid in the pelvis, likely physiologic. Electronically signed by: Caridad Amaya MD 10/14/2023 06:03 AM PAYROLL ADMINISTRATIVE ASSISTANT Due to temporary technical issues with the PACS/Fluency reporting system, reports are being signed by the in house radiologists without review as a courtesy to insure prompt reporting. The interpreting radiologist is fully responsible for the content of the report.
--- NOTE | 2023-10-15 16:41 | RAD REPORT ---
EXAM DESCRIPTION: US - Abdomen Exam Limited - 10/14/2023 3:00 am CLINICAL HISTORY: 38 years Female; ABD PAIN TECHNIQUE: Limited abdominal ultrasound was performed. COMPARISON: None. FINDINGS: Liver: Heterogeneous echotexture with scattered areas of focal fatty sparing. No focal les ions. Gallbladder: Gallstones present. No p pericholecystic fluid. Gallbladder wall measures 1 mm. Common bile duct: 4 mm. IMPRESSION: Cholelithiasis without sonographic evidence of acute cholecystitis. Electronically signed by: Caridad Amaya MD 10/14/2023 03:28 AM GROMMET WORKER Due to temporary technical issues with the PACS/Fluency reporting system, reports are being signed by the in house radiologists without review as a courtesy to insure prompt reporting. The interpreting radiologist is fully responsible for the content of the report.
== END 2023-10-14 07:00 | disposition home or self-care (01) ==
LOC: ER 02:16
DX: K80.20 Calculus of gallbladder without cholecystitis without obstruction (principal)
CPT/HCPCS: 85025; 81001; 36415; 81025; 83690; 80053; 74177; 76705; 96375; 96372; 96374; 99284; Q9967; J0500; J2405; J7030